=== PATIENT | male | born 1975 | race Caucasian/White ===

== ENCOUNTER 2025-05-09 09:57 | Emergency (ER) | payer OTHER, SELFPAY ==
[2025-05-09 10:08] VITALS: BP 160/95; PULSE 85; RESP 18; TEMP 36.6; O2SAT 97
--- NOTE | 2025-05-09 10:38 | ED.NECK ---
HPI - Neck Pain/Injury General Chief Complaint: Neck Pain/Injury Stated Complaint: right side neck pain down arm Time Seen by Provider: 05/09/25 10:20 Source: patient and RN notes reviewed Mode of arrival: ambulatory Limitations: no limitations History of Present Illness HPI Narrative: 50-year-old male patient presents Express Care complaining of right-sided neck pain for 4-5 days. Patient said it started after he lifted his grandchild up. Patient reports pain in the right neck that radiates into the right shoulder down to the right mid arm. Patient said is worse with certain movements of his right arm or certain positions when he is lying down. Patient tried Tylenol without relief. This is today the pain is somewhat better but still persisting, he says he is having a hard time sleeping. Related Data Home Medications ?Medication ?Instructions ?Recorded ?Confirmed ?Last Taken ?Type lisinopril 10 mg tablet 10 mg PO DAILY 05/09/25 Unknown History metoprolol tartrate 50 mg tablet 50 mg PO BID 05/09/25 Unknown History Allergies Allergy/AdvReac Type Severity Reaction Status Date / Time LATOYA Inhibitors AdvReac Dizziness Verified 05/09/25 10:11 Review of Systems Review of Systems: CONSTITUTIONAL: Denies fever, chills, or sweats. EYES: Denies visual changes, redness, or discharge. ENT: Denies rhinorrhea, congestion, sore throat, or otalgia. CARDIOVASCULAR: Denies chest pain, palpitations, or edema. RESPIRATORY: Denies cough or dyspnea. GASTROINTESTINAL: Denies abdominal pain, nausea, vomiting, or diarrhea. GENITOURINARY: Denies dysuria or hematuria. SKIN: Denies rash or itching. MUSCULOSKELETAL: Denies back pain, joint pain, or myalgia. Positive for neck pain. NEUROLOGIC: Denies headache, numbness, or weakness. PSYCHIATRIC: Denies anxiety or depression. All other systems reviewed are negative, except as documented in HPI. PMFSH Comments At the time of my signature, I reviewed and agree with the nursing past medical, surgical, social, and family history. There is no relevant family history pertinent to the patient complaint. Exam Narrative: GENERAL: This is a well-nourished, well-developed adult, in no apparent distress. They are non ill-appearing, nontoxic appearing. HEAD: normocephalic, atraumatic. EYES: Sclera clear/white. Conjunctiva normal. Vision is grossly intact. Extraocular movements intact EARS: External ears normal, Hearing grossly intact. NOSE: External nose normal THROAT: Mucous membranes moist, NECK: Neck supple, non-tender without lymphadenopathy, masses or thyromegaly. No cervical point tenderness, crepitus, or step-offs. There is pain through full range of motion. CARDIOVASCULAR: Regular rate and rhythm RESPIRATORY: Normal range of motion SKIN: warm, Dry, intact with no suspicious lesions or rash, good texture and turgor. NEURO: awake, alert, and oriented to person, place and time. There were no obvious focal neurologic abnormalities. EXTREMITIES: No joint tenderness, effusion, or edema noted. BACK: Nontender without deformity. No CVA tenderness. No thoracic or lumbar point tenderness, crepitus, or step-offs. Course Course Level of Care: Express Care Visit Vital Signs Vital signs: Vital Signs Temperature 98 F 05/09/25 10:08 Pulse Rate 85 05/09/25 10:08 Respiratory Rate 18 05/09/25 10:08 Blood Pressure 160/95 H 05/09/25 10:08 Pulse Oximetry 97 05/09/25 10:08 Oxygen Delivery Room Air 05/09/25 10:08 Temperature 98 F 05/09/25 10:08 Pulse Rate 85 05/09/25 10:08 Respiratory Rate 18 05/09/25 10:08 Blood Pressure 160/95 H 05/09/25 10:08 Pulse Oximetry 97 05/09/25 10:08 Oxygen Delivery Room Air 05/09/25 10:08 [facility] Narrative Medical decision making narrative: Likely patient has a muscle strain. Will send home on methocarbamol. Discussed supportive care. Discussed physical exam findings. Advised supportive measures and signs/symptoms to go to the ER. Pt is appropriate for outpt treatment and f/u. Differential Diagnosis Differential Diagnosis: Cervical radiculopathy, cervical strain, muscle strain, cervical spondylosis Critical Care Time Critical Care Time Critical Care Time: No Discharge Plan Discharge Clinical Impression: Neck muscle strain Qualifiers: Encounter type: initial encounter Qualified Code(s): S16.1XXA - Strain of muscle, fascia and tendon at neck level, initial encounter Patient Disposition: Home Condition: Stable Instructions: Cervical Strain (ED) Additional Instructions: Take the muscle relaxer as directed. Do not drive or operate heavy machine, or work while taking the medication as it can make you drowsy. Use the lidocaine patches, applied affected area, remove after 12 hours. Follow instructions on the packaging. You may take ibuprofen 600 mg to 800 mg every 6-8 hours. Do not exceed more than 800 mg of ibuprofen per dose. Do not exceed more than 3200 mg ibuprofen in a day. You may take up to 1000 mg Tylenol every 6-8 hours. Do not exceed 1000 mg per dose, do exceed more than 4000 mg of Tylenol in a day. Follow-up with PCP in 3-5 days. Go to the ER for any serious concerns, severe pain, unable to use her right arm Patient Language: Romansh Prescriptions: New methocarbamol 750 mg tablet 750 mg PO TID PRN (Reason: muscle spasms) Qty: 12 0RF No Action lisinopril 10 mg tablet 10 mg PO DAILY metoprolol tartrate 50 mg tablet 50 mg PO BID Follow-up/Referrals: PHYSICIAN,CRYSTAL INSPECTOR [Primary Care Provider, Internal Medicine] Time of Disposition: 10:36
== END 2025-05-09 10:45 | disposition home or self-care (01) ==
DX: S16.1XXA Strain of muscle, fascia and tendon at neck level, initial encounter (principal); X50.9XXA Other and unspecified overexertion or strenuous movements or postures, initial encounter; I10 Essential (primary) hypertension
CPT/HCPCS: 99203; G0463

== ENCOUNTER 2025-05-16 12:14 | Emergency (ER) | payer OTHER, SELFPAY ==
--- NOTE | ~2025-05-16 | XR_ITS ---
XR cervical spine 4-5V Indication: pain right side Comparison: None Findings: No fracture is identified, no subluxation flexion and extension. The disc heights are intact. Soft tissues unremarkable Impression: No acute abnormality. Reviewed, dictated and finalized at location P. TRIC MOTOR ANALYST Impression: No acute abnormality.
--- OUTSIDE RECORDS SUMMARY | 2025-05-16 12:17 | XMS_ITS | Patient Health Record ---
Author Organization [facility] Address [address] [place], [place] [id number] Support Name Relationship Address Phone KENTON KATHLEEN Guarantor Unknown [phone] Reason For Referral No Information Plan Of Treatment No Information
--- OUTSIDE RECORDS SUMMARY | 2025-05-16 12:19 | XMS_ITS | Data Portability ---
Author Organization RAY[facility] Osman [facility] [employer] [facility] [employer], [facility], [place] Address [address] [place] [address] Care Team Providers Care Cooker Syrup Name Role Phone MECCAKEISHA LAMA Referring Provider [phone] Assessment Encounter Date Assessment Date Assessment LastModified by Organization Details LastModified Time 07/13/2022 07/13/2022 47 year old male seen in clinic today with reports of acute sinusitis. He reports symptoms of frontal sinus pressure and headaches for years off and on but worse the last year. He has also been having a lot of dizziness. Symptoms have been intermittent since Feb 2022. Also has had enlarged lymph nodes as well, CT and MRI done in past which showed concerns for lymphoma. Saw oncology who reports the lymph node is not large enough for biopsy and will not proceed until larger. CT in office today shows turbinate hypertrophy and deviated septum- no sign of sinus disease. On physical exam both tympanic membranes are visualized with clear landmarks, there is turbinate hypertrophy. I would like him to return to the office for CT only visit next time he is feeling sick. I would also like him to follow up with neurology to evaluate for migraines. Patient is seeing neurology tomorrow. Patient also has hypertension which we discussed could be contributing to his headaches. Patient is being treated for hypertension. - Continue to follow up with neurology for headaches - Follow up next time he is feeling that he has a sinus infection. If no appts available, may schedule CT only [email or web address] Not available 07/13/2022 15:23:10 Plan of Treatment Reminders Order Date Submit Date Provider Last Modified By Organization Details Last Modified Time Details Appointments None record ed. Lab None record ed. Referral None record ed. Procedures None record ed. Surgeries None record ed. Imaging None record ed. Medication Orders None record ed. Patient TargetsNo targets recorded. Patient InstructionsNo instructions recorded. Reason for Referral None Reported. Results Created Date Observation Date Name Description Value Unit Range Abnormal Flag Note LastModifiedBy Organization Detail LastModifiedTime 07/19/19 23 04/07/2022 MRI, brain + brain stem, w/ contr ast No observ ation record ed. [id number] Not Available 03/23/2024 04:07:11 Result Notes None recorded. Problems Name Problem SNOMED Code Status Onset Date Resolution Date Notes Provider Name and Address Organization Details Recorded Time Hypertensive disorder 58925877 Active 2022 [facility], [facility] 3 09:39:34 Asthma 808081294 Active 2022 [facility], [facility] 3 09:39:42 Hyperlipidemia 31350485 Active 2022 [facility], [facility] 3 09:39:48 Post-traumatic stress disorder 28195145 Active 2022 [facility] - [facility], [facility] 3 09:39:58 Ventricular premature complex 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 Procedures Surgical History Date Name Laterality Status Provider Name and Address Organization Details Recorded Time 3 CT Sinus - In office completed ANGELO Hawley [address] [place] [address], [id number], [facility], [facility] 07/13/2022 15:18:13 procedure on wrist completed don [facility], [facility] 07/07/2022 09:39:20 Knee Surgery completed don [facility], [facility] 07/07/2022 09:39:26 Imaging Results None recorded. Procedure Notes None recorded. Medical Equipment None Reported. Allergies Allergen ID Allergen Name Allergen Category Reaction Reaction Severity Criticality Documentation Date Start Date Code Code System Note Provider Name and Address Organization Details Recorded Time 154174 fluoxetin e medicatio n Not available Not available Not available 07/07/2022 4493 RxNorm don colonyaz dickson [facility], [facility] 3 09:38:44 [id number] Lexapro medicatio n Not available Not available Not available 07/07/2022 47391 1 RxNorm don sadie dickson [facility], [facility] 3 09:38:52 [id number] sertralin e medicatio n Not available Not available Not available 07/07/2022 33886 RxNorm don sadie dickson [facility], [facility] 3 09:38:57 Medications Name Sig Start Date Stop Date Status Note LastModified by Organization Details LastModified Time terbinafine HCl 1 % topical cream APPLY A THIN LAYER TOPICALLY TO SOLES OF FEET EVERY DAY FOR 14 DAYS active Not Available Not Available No t Available amlodipine 5 mg tablet TAKE 1 TABLET BY MOUTH EVERY DAY active Not Available Not Available No t Available propranolol 40 mg tablet TAKE 1 TABLET 2 TIMES A DAY,INSTR: HOLD DOSE IF YOUR HEART RATE IS BELOW 60 BEATS PER MINUTE active Not Available Not Available N ot Available doxycycline hyclate 100 mg tablet active Not Available Not Available No t Available amoxicillin 875 mg-potassium clavulanate 125 mg tablet TAKE 1 TABLET BY MOUTH EVERY 12 HOURS FOR 10 DAYS active Not Available Not Available No t Available Vitals Date Recorded Body height Body mass index (BMI) Body weight Provider Name and Address Organization Details Last Updated DateTime 07/13/2022 177.8 cm 32.3 kg/m2 266525.28 g Shira Bansal [facility], [facility] 07/13/2022 14:40:28 Social History None recorded. Functional Status Question Answer Note LastModified by Organizat ion Details LastModified Time Do you use any illicit or recreational drugs? No Information not available 07/13/2022 Do you or have you ever used any other forms of tobacco or nicotine? No Information not available 07/13/2022 What is your level of alcohol consumption? None Information not available 07/13/2022 Mental Status None recorded. Family History Nothing Reported. Medical History Condition Response Nasal/Sinus Problems Y Hypertension Y Past Encounters Encounter ID Performer Location Encounter Start Date Encounter Closed Date Diagnosis/Indication Diagnosis SNOMED-CT Code Diagnosis ICD10 Code Diagnosis IMO Codes Diagnosis Note [id number] ANGELO Hawley [facility] [address] [facility] [place] [address] 07/13/2022 14:22:23 07/14/2022 12:52:46 Hypertrophy of nasal turbinates 59672367 J34.3 Nasal congestion 4301719 0 R09.81 Deviated nasal septum 12 1559283 J34.2 Headache 49780226 R51.9 Health Concerns Section Related Observation LastModified by Organization Detai ls LastModified Time None Recorded Concern Status LastModified by Organization Details LastModified Time None Recorded Advance Directives Directive None Recorded Payers Insurance Date Sequence Insurance Name Policy Number Policy Tee Covered Member ID Tee Member ID Guarantor Name 07/10/2022 [employer] [facility] Fuad Ramey [id number] Fuad Ramey Notes Date Note Type Note Provider Name and Address Organization Details Recorded Time 07/13/2022 text/html 47 year old male seen in clinic today with reports of acute sinusitis. He reports symptoms of frontal sinus pressure and headaches for years off and on but worse the last year. He has also been having a lot of dizziness.Symptoms have been intermittent since Feb 2022. OTC cold medications giv minimal relief. Was given Augmentin by PCP and he has 1 day left for sinus infection. He has tried a Netipot and Flonase without any relief.He has occasional nasal congestion but his main symptom is frontal sinus pressure and pain.Also has had enlarged lymph nodes as well, CT and MRI done in past which showed concerns for lymphoma. Saw oncology who reports the lymph node is not large enough for biopsy and will not proceed until larger. He denies any difficulty swallowing, throat pain or family history. ANGELO Hawley [address] [place], [address], [facility], [facility] 07/13/2022 15:23:24
[2025-05-16 12:22] VITALS: BP 165/101; PULSE 104; RESP 18; TEMP 36.2; O2SAT 98
[2025-05-16 12:23] VITALS: BP 168/104
--- NOTE | 2025-05-16 12:38 | ED.UPPEXIN ---
HPI - Extremity Injury (Upper) General Chief Complaint: Extremity Injury, Upper Stated Complaint: Right Shoulder Pain Time Seen by Provider: 05/16/25 12:39 Source: patient, RN notes reviewed and old records reviewed Mode of arrival: ambulatory Limitations: no limitations History of Present Illness HPI narrative: 50-year-old male presents to the [facility] with continued right side of neck radiating to the right shoulder pain. Was evaluated on May 09, 2025. per medical record patient was lifting his grandchild, was seen 3-4 days after. Had been taking Tylenol. Patient with a history of hypertension and states that he does take medication. Treatments prior to arrival: NSAIDS and other ( Tylenol, muscle relaxer) Related Data Home Medications ?Medication ?Instructions ?Recorded ?Confirmed ?Last Taken ?Type lisinopril 10 mg tablet 10 mg PO DAILY 05/09/25 Unknown History metoprolol tartrate 50 mg tablet 50 mg PO BID 05/09/25 Unknown History Allergies Allergy/AdvReac Type Severity Reaction Status Date / Time LATOYA Inhibitors AdvReac Dizziness Verified 05/16/25 12:27 Review of Systems Review of Systems: All systems reviewed & are unremarkable except as noted in HPI and below Constitutional: Constitutional: Reports no additional constitutional complaints ENT: Reports system reviewed and no additional complaints, except as documented Cardiovascular: Cardiovascular: Reports no additional cardiovascular complaints, Denies chest pain and Denies dyspnea Respiratory: Respiratory: Reports no additional respiratory complaints, Denies chest congestion, Denies cough and Denies dyspnea Musculoskeletal: Musculoskeletal: Reports as per HPI Integumentary/Breasts: Skin/Breast: Reports system reviewed and no additional complaints, except as docu PMFSH Past Medical History Medical History History of essential hypertension Comments At the time of my signature, I reviewed and agree with the nursing past medical, surgical, social, and family history. There is no relevant family history pertinent to the patient complaint. Exam Const: General: cooperative, healthy appearing, comfortable, no acute distress, well developed, alert and well nourished Nutritional Appearance: well nourished Orientation/consciousness: patient oriented x3 Limitations: no limitations HENMT: Head: normal to inspection Eyes: General: appearance normal, both eyes and all related structures Alignment and Position: alignment normal Neck: Neck: normal visual inspection, full ROM, no lymphadenopathy and no meningeal signs Chest: Chest palpation & inspection: normal inspection of the chest Resp: Effort & Inspection: normal respiratory effort and able to speak in complete sentences Auscultation: clear to auscultation bilaterally, no crackles, no rales, no rhonchi and no wheezes Cardio: Rate: regular rate Back/Spine/Pelvis: Cervical Spine: normal cervical lordosis, cervical ROM normal, cervical muscular tenderness and No Cervical spine tenderness Thoracic/Lumbar Spine: No thoracic spinal tenderness and No lumbar spinal tenderness Skin: General skin exam: normal color and no rashes or lesions noted Neuro: General: patient oriented x3, gait normal, moves all extremities and no meningeal signs Cognition (Neuro): normal cognition Speech: normal speech Gait exam (Neuro): Normal gait present Extrem: General: normal to inspection, full ROM, capillary refill normal and normal gait Right upper extremity: shoulder/upper arm abnormal ROM pain with active ROM; no tenderness and no swelling; no edema Psych: Appearance: grossly normal and well kempt Mental Status: mental status grossly normal Speech and movement: Normal speech and movement present and Clear speech present Affect: normal affect Attitude: cooperative Course Course Level of Care: Express Care Visit Vital Signs Vital signs: Vital Signs Temperature 97.2 F L 05/16/25 12:22 Pulse Rate 104 H 05/16/25 12:22 Respiratory Rate 18 05/16/25 12:22 Blood Pressure 165/101 H 05/16/25 12:22 Pulse Oximetry 98 05/16/25 12:22 Oxygen Delivery Room Air 05/16/25 12:22 Temperature 97.2 F L 05/16/25 12:22 Pulse Rate 104 H 05/16/25 12:22 Respiratory Rate 18 05/16/25 12:22 Blood Pressure 168/104 H 05/16/25 12:23 Pulse Oximetry 98 05/16/25 12:22 Oxygen Delivery Room Air 05/16/25 12:22 reviewed MDM MDM Narrative Medical decision making narrative: patient sitting in exam room. Patient is nontoxic in appearance. Appears uncomfortable. Blood pressure is elevated, history of hypertension states that he does take medications. Patient with pain radiating from the side of neck down into the shoulder and numbness into fingers 3 and 4. Has good range of motion but pain with range of motion. Denies any significant trauma, started when lifting his grandchild. X-ray is negative. Patient appropriate for outpatient treatment, will change muscle relaxer, and anti-inflammatory. Discussed [id number] products as well which patient verbalized understanding. Stressed the importance of following up with primary care provider further treatment. Discharge instructions reviewed with patient, as well as provided in writing per nursing staff. The instructions also include specific and strict return/GO TO THE ER as well as f/u information. All questions have been answered, and the patient deny any further questions with discharge and discharge plan. Some parts of this dictation were generated by voice recognition software and may contain typographical and/or grammatical inaccuracies. Differential Diagnosis Differential Diagnosis: Differential diagnostic considerations for neck injury/pain include disc disorder of cervical region, whiplash injury to neck, closed subluxation of cervical spine, fracture of cervical spine without lesion of spinal cord, cervical radiculopathy, vertebral artery dissection torticollis, cervical spondylosis, strain of neck muscle. Imaging Data Radiologist's impression: ITS Impressions Cervical Spine X-Ray 05/16/25 13:30 Impression: No acute abnormality. XR cervical spine 4-5V Indication: pain right side Comparison: None Findings: No fracture is identified, no subluxation flexion and extension. The disc heights are intact. Soft tissues unremarkable Impression: No acute abnormality. Discharge Plan Discharge Clinical Impression: Cervical radiculopathy Patient Disposition: Home Condition: Stable Instructions: Cervical Radiculopathy (ED) Additional Instructions: Take ibuprofen as directed to decrease inflammation and to help pain. Take Baclofen (muscle relaxer) as directed. Do not drink, drive, operate machinery, or do anything dangerous while taking this medication Exercise:Combine aerobic exercise, like walking or swimming, with specific exercises to keep the muscles in your back and abdomen strong and flexible. Proper Lifting:Be sure to lift heavy items with your legs, not your back. Do not bend over to pick something up. Keep your back straight and bend at your knees. Weight:Maintain a healthy weight. Being overweight puts added stress on your lower back. Avoid Smoking:Both the smoke and the nicotine cause your spine to age faster than normal. Proper Posture:Good posture is important for avoiding future problems. A therapist can teach you how to safely stand, sit, and lift. Use warm moist heat to help with pain. Using topical such as Biofreeze, Jett-Mock or Aspercreme can also help Follow up with Primary provider in 2-3 days, This may become a chronic condition and they will be the one to help manage your pain and order additional testing. Go to the nearest ER if you develop problems with bladder/bowel function, weakness or loss of feeling in one or both of your legs. Patient Language: Belizean Prescriptions: New cyclobenzaprine 10 mg tablet 10 mg PO TID PRN (Reason: muscle spasm) Qty: 15 0RF ibuprofen 600 mg tablet 600 mg PO TID PRN (Reason: fever or pain) Qty: 30 0RF No Action lisinopril 10 mg tablet 10 mg PO DAILY metoprolol tartrate 50 mg tablet 50 mg PO BID methocarbamol 750 mg tablet 750 mg PO TID PRN (Reason: muscle spasms) Qty: 12 0RF Follow-up/Referrals: PHYSICIAN,SUPERVISOR EPOXY FABRICATION [Primary Care Provider, Internal Medicine] Time of Disposition: 13:38
== END 2025-05-16 13:47 | disposition home or self-care (01) ==
PROVIDERS: Emergency Provider Nurse Practitioner
DX: M54.12 Radiculopathy, cervical region (principal); I10 Essential (primary) hypertension
CPT/HCPCS: 72050; 99213; G0463